=== PATIENT | male | born 1985 | race Caucasian/White ===

== ENCOUNTER 2019-06-13 11:20 | Emergency (ER) | payer MEDICAID ==
[~2019-06-13] VITALS: Ht 177.8 cm; Wt 70.0 kg
[~2019-06-13 11:20] MED LIST: CLON0.12 PO; PHEN30CA PO
[2019-06-13 11:32] VITALS: BP 127/65
[2019-06-13] MEDS ORDERED: LIDOCAINE-MPF 1%, 5ML ONE (11:45)
--- NOTE | 2019-06-13 11:51 | NUR ---
changed into gown. abscess R FA. denies ivda. tried to pop it himself. no streaking noted. c/o chills, no fevers. as
[2019-06-13] MEDS ORDERED: LIDOCAINE-MPF 1%, 5ML INFIL ONE (12:00)
[2019-06-13] MEDS ORDERED: LORazepam 1MG TABLET ONE (13:19)
[2019-06-13] MEDS ORDERED: HYDROmorphone 1 MG/ML, 1ML INJ ONE (13:21)
--- NOTE | 2019-06-13 13:24 | NUR ---
MEDS PER MAR/PAIN AND ANXIETY. PLAN FOR I/D.
[2019-06-13] MEDS ORDERED: HYDROmorphone 1 MG/ML, 1ML INJ IM ONE (13:30)
[2019-06-13] MEDS ORDERED: LORazepam 1MG TABLET PO ONE (13:30)
--- NOTE | 2019-06-13 14:06 | NUR ---
i/d in prog. as
== END 2019-06-13 14:40 | disposition home or self-care (01) ==
LOC: ED 14:34
DX: L02.413 Cutaneous abscess of right upper limb (principal)
CPT/HCPCS: 10060; 96372; 99283; J1170

== ENCOUNTER 2020-01-10 18:14 | Emergency (ER) | payer MEDICAID ==
[~2020-01-10] VITALS: Ht 177.8 cm; Wt 80.0 kg
[2020-01-10] MEDS ORDERED: AMIT150T PO (18:22)
[2020-01-10] MEDS ORDERED: DIVA500T4 PO (18:22)
[2020-01-10] MEDS ORDERED: DIVALPROEX 500 MG TABLET.DR ONE (18:36)
[2020-01-10] MEDS ORDERED: LORazepam 2 MG/ML, 1ML ONE (18:37)
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
[2020-01-10] MEDS ORDERED: DIVALPROEX 500 MG TABLET.DR PO ONE (19:00)
[2020-01-10] MEDS ORDERED: LORazepam 2 MG/ML, 1ML IM ONE (19:00)
--- NOTE | 2020-01-10 19:35 | NUR ---
PT NOW SLEEPING SOUNDLY. NAD. VSS. FAMILY AT BEDSIDE. FAMILY DENIES CURRENT NEEDS.
--- NOTE | 2020-01-10 21:47 | NUR ---
PT SLEEPING. PT AWAKENS TO STORNG VERBAL STIMULI HOWEVER PROMPTLY RETURNS TO SLEEP.
--- NOTE | 2020-01-10 23:01 | NUR ---
PT OPENS EYES TO STRONG VERBAL STIMULI HOWEVER NON VERBAL AND PROMPTLY RETURNS TO SLEEP. NAD. VSS.
[2020-01-10 23:54] VITALS: BP 121/72
--- NOTE | 2020-01-11 00:01 | NUR ---
PT AMBULATED TO RESTROOM WITH STEADY GAIT. RN CALLED PT FRIEND JESSICA FOR ADDRESS TO SEND PT TO FOR SAFE DISCHARGE. CAB VOUCHER GIVEN.
== END 2020-01-11 00:23 | disposition home or self-care (01) ==
LOC: ED 18:44
DX: F15.10 Other stimulant abuse, uncomplicated (principal); R56.9 Unspecified convulsions; R55 Syncope and collapse; R00.0 Tachycardia, unspecified
CPT/HCPCS: 93005; 96372; 99285; J2060

== ENCOUNTER 2020-01-15 03:30 | Emergency (ER) | payer MEDICAID ==
[~2020-01-15 03:30] MED LIST changes: +AMIT150T PO; +DIVA500T4 PO
[2020-01-15] MEDS ORDERED: LORazepam 1MG TABLET PO ONE (04:00)
--- NOTE | 2020-01-15 04:10 | NUR ---
SEE PAPER CHARTING FOR PATIENT. PATIENT ARRIVED DURING DOWNTIME
--- NOTE | 2020-01-15 05:00 | NUR ---
THIS RN WENT TO D/C PATIENT BUT PATIENT WAS UNABLE TO AROUSE. VITALS STABLE AND CHARTED. SECURITY CALLED AND PAINFUL STIMULATION APPLIED. PATIENT ABLE TO SIT UP IN BED BUT WAS FALLING OVER. DR. SILVESTRE WAS UPDATED AND STATED TO KEEP PATIENT UNTIL ABLE TO STEADILY WALK. PLACED ON CONTINUOUS PULSE OX.
--- NOTE | 2020-01-15 05:57 | NUR ---
PATIENT STILL NOT RESPONDING TO NURSE. WHEN ATTEMPTING TO GET PATIENT UP, HE STARTS FLEXING AND SQUIRMING IN BED, BUT DOES NOT RESPOND TO THIS RN.
--- NOTE | 2020-01-15 06:42 | NUR ---
PLACED PILLOWS AND SEIZURE PADS ON GURNEY, PATIENT ON MONITORS. NO S/S OF DISTRESS, PATIENT STILL NOT WAKING UP COMPLETELY
--- NOTE | 2020-01-15 07:01 | NUR ---
SBAR RECEIVED ON PATIENT AT BEDSIDE FOR TRANSFER OF CARE.
--- NOTE | 2020-01-15 07:40 | NUR ---
PATIENT SLEEPING IN GURNEY WITH EYES CLOSED, CHEST RISE AND FALL NOTED. VITAL SIGNS WITHIN NORMAL LIMITS.
--- NOTE | 2020-01-15 08:53 | NUR ---
PATIENT MOVING AROUND IN BED, BARELY OPENS EYES TO NAME, VITAL SIGNS WITHIN NORMAL LIMITS, CALL LIGHT WITHIN REACH, BED RAILS UP X2.
[2020-01-15 09:14] VITALS: BP 127/65
== END 2020-01-15 09:16 | disposition home or self-care (01) ==
LOC: ED 03:49
DX: F15.10 Other stimulant abuse, uncomplicated (principal); F10.10 Alcohol abuse, uncomplicated; F17.210 Nicotine dependence, cigarettes, uncomplicated; Z72.9 Problem related to lifestyle, unspecified; Y90.0 Blood alcohol level of less than 20 mg/100 ml
CPT/HCPCS: 99285; 99406